=== PATIENT | male | born 1965 | race Caucasian/White ===

== ENCOUNTER 2021-08-07 10:18 | Outpatient (CLI) | payer BC, SELFPAY ==
--- NOTE | ~2021-08-07 | MR_ITS ---
EXAMINATION: MR brain/brain stem wo/w con EXAM DATE: 08/07/2021 12:08 INDICATION: G50.0 - Trigeminal neuralgia. Right facial pain, right scalp tenderness. Symptoms 3 month s. TECHNIQUE: Multi-sequential, multiplanar MR images of the brain, brainstem, internal auditory canals were obtained without contrast. Whole brain sagittal T1, axial diffusion, gradient echo (T2*), T1, T 2, FLAIR sequences obtained. High resolution coronal 3-D FIESTA, coronal T1 FSE, axial T1 FSPGR of t he internal auditory canals and Meckel's caves. Patient was then injected with 18 cc Multihance contr ast intravenously. Postcontrast axial and coronal T1 weighted whole brain, axial and coronal high re solution T1 IAC sequences obtained. There is no prior study for comparison. FINDINGS: The 5th cranial nerves are symmetric and unremarkable in the prepontine course and within M jeffrey's caves. No evidence of mastoid or middle ear opacification. The 7th/8th cranial nerve complex es are symmetric, normal in course and caliber. No cerebellopontine angle masses. Posterior fossa u nremarkable. There are no areas of restricted diffusion to suggest acute infarction. There is no acute hemorrhage seen on the T2*, a hemosiderin sensitive sequence. No intraparenchymal brain mass. The ventricles a re normal in size. There are no extra-axial collections. Flow voids are seen in the cerebral arteri es on the T2-weighted sequences consistent with their expected patency. The orbits are unremarkable. Soft tissue is unremarkable. There are no areas of abnormal enhancement on the postcontrast image s. IMPRESSION: Unremarkable MR brain/IAC examination. Reviewed, dictated and finalized at location A.
[2021-08-07 11:20] LABS: Estimated Glomerular Filt Rate > 60
== END 2021-08-07 10:19 | disposition home or self-care (01) ==
LOC: ANHIMG 10:20
PROVIDERS: Visit Provider Psychiatry & Neurology Neurology
DX: G50.0 Trigeminal neuralgia (principal)
CPT/HCPCS: 70553; A9577